=== PATIENT | male | born 1975 | race Caucasian/White ===

== ENCOUNTER 2020-02-05 10:03 | Emergency (ER) | payer MEDICAID, OTHER ==
[~2020-02-05] VITALS: Ht 172.7 cm; Wt 76.7 kg
--- NOTE | 2020-02-05 10:15 | NUR ---
Dr. Chavira at bedside for MSE
--- NOTE | 2020-02-05 10:23 | NUR ---
Clean catch urine specimen collected and sent to lab
[2020-02-05 10:39] LABS: *BILIRUBIN,URIN NEGATIVE (NEGATIVE); *BLOOD, URINE NEGATIVE (NEGATIVE); *CLARITY,URINE CLEAR (CLEAR); *COLOR,URINE YELLOW (YELLOW); *KETONES,URINE NEGATIVE (NEGATIVE); *UROBILINOGEN,URINE 0.2 E.U./dl (NORMAL); LEUKOCYTE ESTERASE ,URINE NEGATIVE (NEGATIVE); NITRITE, URINE NEGATIVE (NEGATIVE); PH,URINE 6.5 (5.0-8.0); UGLUCOSE NEGATIVE (NEGATIVE)
--- NOTE | 2020-02-05 10:52 | NUR ---
Patient discharged to home in stable condition. Written and verbal after care instructions given. Patient verbalizes understanding of instructions. Stressed follow up or return to ER for worsening s/s. Patient ambulating with steady gait. NAD noted
[2020-02-05 11:55] VITALS: BP 133/86
== END 2020-02-05 10:52 | disposition home or self-care (01) ==
LOC: ER 10:03
DX: R30.0 Dysuria (principal)
CPT/HCPCS: A4663